=== PATIENT | female | born 1945 | race Caucasian/White ===

== ENCOUNTER 2021-07-05 10:43 | Outpatient (CLI) | payer BC | END 2021-07-05 10:44 | disposition home or self-care (01) | LOC: CSHCT 10:43 | PROVIDERS: ATTEND Physician Assistant Medical | DX: R10.9 Unspecified abdominal pain (principal); Z90.49 Acquired absence of other specified parts of digestive tract; I70.90 Unspecified atherosclerosis; N28.9 Disorder of kidney and ureter, unspecified | CPT/HCPCS: 74177; 82565 ==